=== PATIENT | female | born 1990 | race Caucasian/White ===

== ENCOUNTER 2020-03-12 17:14 | Outpatient (CLI) | payer OTHER, SELFPAY ==
[2020-03-12 17:55] LABS: Hematocrit 36.4 % (37.0-47.0); Hemoglobin 12.5 g/dL (12.0-15.0); Mean Corpuscular HGB Conc 34.3 g/dl (32-36); Mean Corpuscular Hemoglobin 30.6 pg (26-34); Mean Corpuscular Volume 89.2 fl (80-100); Mean Platelet Volume 10.8 fl (7.4-10.4); Platelet Count Result 274 k/mm3 (150-375); Red Blood Count 4.08 M/mm3 (4.2-5.4); Red Cell Distribution Width 12.7 % (11.5-14.5); White Blood Count 12.1 K/mm3 (4.5-10.0)
[2020-03-13 07:41] LABS: Rapid Plasma Reagin Non-Reactive (NonReactive)
== END 2020-03-12 17:15 | disposition home or self-care (01) ==
PROVIDERS: Visit Provider Obstetrics & Gynecology
DX: Z34.93 Encounter for supervision of normal pregnancy, unspecified, third trimester (principal); Z3A.00 Weeks of gestation of pregnancy not specified
CPT/HCPCS: 36415; 85027; 86592; 86850; 86900; 86901

== ENCOUNTER 2020-03-13 11:03 | Inpatient (IN) | payer OTHER, SELFPAY ==
[2020-03-13] VITALS (53 sets, daily range): BP systolic 102–135; BP diastolic 63–93; PULSE 56–101; RESP 12–18; TEMP 36.1–36.9; O2SAT 95–100; BMI 24.5
--- NOTE | 2020-03-13 11:56 | PM.IMHP ---
H&P: HPI History of Present Illness Chief complaint: Scheduled C Section Narrative: 29 y/o at 39 1/7 weeks here for repeat . Also desires permanent contraception with tubal ligation. 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 Does not desire any future childbearing. Review of Systems Review of Systems: All systems reviewed & are unremarkable except as noted in HPI and below PMFSH Surgical History Surgical History History of delivery Family History Family History Mother Breast cancer Daughter Type I diabetes mellitus Social History Social History Substance use: never Gender identity (if verbalized by the patient): Female Spiritual care concerns: No Meds Home Medications and Allergies Home Medications Medication Instructions Recorded Confirmed Type PNV cmb#95-ferrous fumarate-FA 1 tablet PO DAILY 02/19/20 02/19/20 History [] Allergies Allergy/AdvReac Type Severity Reaction Status Date / Time No Known Allergies Allergy Mild Verified 07/18/18 13:39 Vital Signs Vital Signs - 24 hr 03/13/20 11:52 Pulse Rate 97 Blood Pressure 121/93 H Exam Const: Orientation/consciousness: patient oriented x3 Other: Well-developed, well-nourished female in no acute distress. Neck: Thyroid: thyroid normal Lymphatic: no lymphadenopathy noted (in neck, axilla or inguinal nodes) Resp: Effort & Inspection: normal respiratory effort Auscultation: clear to auscultation bilaterally Cardio: Rate: regular rate Rhythm: regular rhythm Heart sounds: S1 normal heart sound present and S2 normal heart sound present GI: Other: ABD: Soft, nontender, gravid. FHR auscultated. Vertex. : General: Yes no CVA tenderness Other: Cervix closed, thick Back/Spine/Pelvis: Back: no CVA tenderness Skin: General skin exam: normal color and no rashes or lesions noted Neuro: General: patient oriented x3 Extrem: Other: Extremities: nontender with no edema Psych: Mental Status: mental status grossly normal Affect: normal affect Assessment and Plan Assessment and plan (1) History of delivery: Code(s): Z98.891 - History of uterine scar from previous surgery Status: Acute Assessment and Plan: She desires repeat . Also would like tubal ligation. She understands there are temporary methods of contraception available to her. She understands that there are nonsurgical options as well as surgical options. She understands that tubal ligation will render her permanently sterile. She understands that there is a failure rate associated with tubal ligation, as well as an inherent ectopic gestation risk. Furthermore, she understands risks of surgery to include risks of anesthesia, risks of pain, infection, bleeding, blood products, thromboembolic phenomena and damage to adjacent structures such as bowel, bladder, ureters, blood vessels and nerves. She understands all these risks and elects to proceed with repeat LTCS and concurrent BTL. (2) Encounter for female sterilization procedure: Code(s): Z30.2 - Encounter for sterilization Status: Acute (3) GBS (group B Streptococcus carrier), +RV culture, currently : Code(s): O99.820 - Streptococcus B carrier state complicating Status: Acute
[2020-03-13] MEDS: LACTATED RINGERS 1,000 ML 125 ML IV CONT ×2 (12:10→13:02)
--- NOTE | 2020-03-13 13:15 | WPDANESEPPF ---
Anes - Initial Pre Proc Eval Procedure: Operation Date: 03/13/20 13:30 Proposed Procedures p Repeat Section With Bilateral Tubal Ligation - Lokesh Borden MD Date/Time: 03/13/20 13:15 Surgeon: Lokesh Borden MD Pre Op Diagnosis: Scheduled C Section Patient Data Age: 29 Gender: F Height: 4 ft 11 in Weight: 55 kg Last Vital Signs Temp 36.9 C 03/13/20 12:15 Pulse 84 03/13/20 12:31 BP 135/91 H 03/13/20 12:31 Allergies Allergy/AdvReac Type Severity Reaction Status Date / Time No Known Allergies Allergy Mild Verified 07/18/18 13:39 Home Medications Medication Instructions Recorded Confirmed Type PNV cmb#95-ferrous fumarate-FA 1 tablet PO DAILY 02/19/20 02/19/20 History [] Patient hx anesthesia problems: post op nausea/vomiting Family hx anesthesia problems: none PMFSH Surgical History Surgical History History of delivery Family History Family History Mother Breast cancer Daughter Type I diabetes mellitus Social History Social History Smoking status: Never smoker Second hand tobacco smoke exposure: No Substance use: never Gender identity (if verbalized by the patient): Female Spiritual care concerns: No Anes - Eval Final PreProcedure Day of Procedure 03/13/20 13:15 Patient weight: normal Heart: regular rate and rhythm Lungs: clear to auscultation Airway: Mallampati scale class II Neurological: alert and oriented Last oral intake: >/= 8 hours ASA classification: II Emergent: no Anesthetic plan: proceed Anesthesia type and monitoring: regional spinal and standard monitoring Informed Consent: The patient's anesthetic plan and its attendant risks and benefits were discussed with the patient/family/POA. Questions were solicited and answers provided to the satisfaction of the patient/family/POA.
[2020-03-13] MEDS: ceFAZolin 2 GM/D5W 50 ML 2 GM/50 ML BAG IVPB (13:50)
--- NOTE | 2020-03-13 14:55 | P.PCNOB_ITS ---
OB - Delivery Note Procedure Delivery date: 03/13/20 Procedure: Procedures Operation Date: 03/13/20 13:30 <No data on this case meets the specified criteria> repeat low transverse delivery with concurrent bilateral tubal ligation Estimated blood loss (mL): 310 Anesthesia type: Spinal Disposition: PACU Complications: None Narrative: The patient was taken to the operating room where she was prepared and draped in the usual sterile fashion in dorsal supine position with a lef tward tilt. She received cefazolin preoperatively. Spinal anesthesia was found to be adequate. A Pfannenstiel skin incision was made along the previous scar line and was carried through to the underlying layer of the fascia. The fascia was incised in the midline and the incision was extended laterally. The fascia was dissected free of the underlying rectus muscles. The rectus muscles were se parated in the midline. The peritoneum was identified, tented up and entered sharply. The peritoneal incision was extended superiorly and inferiorly with good visualization of the bladder. The bladder blade was placed. The vesicouterine peritoneum was identified, tented up and entered sharply. The incision was extended laterally and the bladder flap was developed. The bladder blade was replaced. The uterus was then incised sharply in a transverse fashion along the lower uterine segment. The incision was extended laterally. The infant's head was delivered atraumatically to the sterile field, followed by the body. The nose and mouth were bulb suctioned. After a delay, the cord was clamped and cut. The infant was handed off the field. Cord blood was collected. The placenta was removed manually and was passed off the field. The uterus was exteriorized and cleared of all clots and debris. The uterine incision was reapproximated using 0 Monocryl in a running, locked fashion. A second layer of the same suture was required for excellent hemostasis. The left fallopian tube was then identified by following it out to the fimbriated end. It was grasped in the midportion with a Briana clamp and a loop of tube was ligated with a free tie of 0 plain gut. The tubal segment was then transected and the specimen was passed off to be sent to pathology. Hemostasis was excellent. Attention was turned to the right fallopian tube which was similarly identified, ligated and transected. Once again, excellent hemostasis resulted. The uterus was returned the abdomen. The pelvis was irrigated copiously with warmed normal saline. Rigorous hemostasis was assured. The fascial layer was reapproximated using 0 Vicryl in a running fashion. The skin was closed with a running, subcuticular stitch of 4 0 Vicryl. Dermaflex was applied externally. Sponge, lap, needle and instrument counts were correct. The patient was taken to the recovery room in stable condition. The went to the nursery in stable condition. I was present and scrubbed the entire procedure. [place] Baby Date of : 03/13/20 Time of : 14:57 Weeks of gestation at delivery: 39 Infant gender: Male Weight (pounds): 6 Weight (ounces): 11 presentation: vertex Placenta delivery description: Manual Removal and Normal Configuration cord vessel description: 3 Vessels score one minute: 9 score five minutes: 9
--- NOTE | 2020-03-13 14:59 | PM.OBDSVD ---
DS: Admitting Diagnosis Admitting Diagnosis Admitting Diagnosis: IUP at 39 1/7 weeks Prior Desired sterility GBS pos DS: Discharge Diagnosis Discharge Diagnosis (1) GBS (group B Streptococcus carrier), +RV culture, currently : Code(s): O99.820 - Streptococcus B carrier state complicating Status: Acute (2) Encounter for female sterilization procedure: Code(s): Z30.2 - Encounter for sterilization Status: Acute (3) History of delivery: Code(s): Z98.891 - History of uterine scar from previous surgery Status: Acute OB - DS: Summary OB Procedures : None OB Procedures Intrapartum: OB Procedures: : P.P. tubal ligation Peripartum Data Procedures: Procedures Operation Date: 03/13/20 13:30 <No data on this case meets the specified criteria> Time Spent with Patient Time attestation: Total time spent providing and/or coordinating discharge services: DS: Data Data Completed and Pending Labs on day of discharge: Labs from last 24 hours 03/13/20 13:47 Urine Opiates Screen Pending Urine Methadone Screen Pending Ur Barbiturates Screen Pending Ur Phencyclidine Scrn Pending Ur Amphetamine Screen Pending U Benzodiazepines Scrn Pending Urine Cocaine Screen Pending U Cannabinoids Screen Pending Discharge Plan Discharge Attending physician on discharge: Lokesh Borden Discharging Clinician: Lokesh Borden Patient Disposition: Home, Self-Care Activity: may shower, may drive after 2 weeks and pelvic rest Diet: regular Wound Care Instructions: incision open to air Discharge Instructions: Call or return if temperature above 100.4? F, increased abdominal pain, increased vaginal bleeding or any new problems. Stand Alone Forms: General Discharge Information Follow-up/Referrals: Lokesh Borden MD [Physician] - (4 weeks) Discharge Medications: New hydrocodone-acetaminophen [[place]] 5-325 mg tablet 1 - 2 tablet PO Q6H PRN (Reason: pain) Qty: 30 RF: 0 ibuprofen 600 mg tablet 600 mg PO Q6H PRN (Reason: cramps) Qty: 30 RF: 0 ferrous sulfate 325 mg (65 mg iron) tablet 325 mg PO DAILY Qty: 30 RF: 0 No Action PNV cmb#95-ferrous fumarate-FA [] 28 mg iron- 800 mcg Tablet 1 tablet PO DAILY RF: 0 Date of admission: 03/13/20 11:03 Primary Care Provider: PHYSICIAN,[employer] MANAGER Admitting Provider: Lokesh Borden Attending physician on admission: Lokesh Borden
[2020-03-13 15:17] LABS: Amphetamine Screen Urine Negative (Negative); Barbiturate Screen Urine Negative (Negative); Benzodiazepines Screen Urine Negative (Negative); Cannabinoid Screen Urine Negative (Negative); Cocaine Screen Urine Negative (Negative); Methadone Screen Urine Negative (Negative); Opiate Screen Urine Negative (Negative); Phencyclidine Screen Urine Negative (Negative)
[2020-03-13] MEDS: OXYTOCIN 30 UNITS/NS 500 ML 30 UNITS/500 ML BAG 125 UNITS IV CONT (16:24)
--- NOTE | 2020-03-13 17:54 | PC.NURSE ---
Patient transferred to post room # 287 per stretcher. Support person present. Oriented to unit, room, information board, rooming in, admission packet and security measures. Patient verbalizes understanding.
[2020-03-13] MEDS: SIMETHICONE 80 MG TAB.CHEW PO (18:07)
[2020-03-13] MEDS: KETOROLAC 30 MG/ML VIAL (*BKC) IV PUSH (18:08)
[2020-03-13] MEDS: IBUPROFEN 600 MG TABLET PO (23:12)
[2020-03-14 05:00] VITALS: BP 119/79; PULSE 83; RESP 16; TEMP 36.7
[2020-03-14] MEDS: IBUPROFEN 600 MG TABLET PO ×3 (05:15→18:55)
[2020-03-14 06:19] LABS: Basophils Percent Auto 0.3 % (0.2-1.2); Eosinophils Absolute Auto 0.1 K/mm3 (0-0.3); Eosinophils Percent Auto 1.3 % (0-4.4); Hematocrit 28.7 % (37.0-47.0); Hemoglobin 9.6 g/dL (12.0-15.0); Immature Granulocyte Absolute 0.05 K/mm3 (0.00-0.031); Immature Granulocyte Percent A 0.4 % (0-0.5); Lymphocytes Absolute Auto 2.33 K/mm3 (0.9-3.2); Lymphocytes Percent Auto 20.9 % (18.3-44.2); Mean Corpuscular HGB Conc 33.4 g/dl (32-36); Mean Corpuscular Hemoglobin 29.9 pg (26-34); Mean Corpuscular Volume 89.4 fl (80-100); Mean Platelet Volume 11.4 fl (7.4-10.4); Monocytes Percent Auto 8.8 % (2.6-8.5); Neutrophils Absolute Auto 7.6 K/mm3 (1.3-6.7); Neutrophils Percent Auto 68.3 % (45.5-73.1); Platelet Count Result 209 k/mm3 (150-375); Red Blood Count 3.21 M/mm3 (4.2-5.4); Red Cell Distribution Width 12.4 % (11.5-14.5); White Blood Count 11.2 K/mm3 (4.5-10.0)
[2020-03-14] MEDS: DOCUSATE SODIUM 100 MG CAPSULE PO ×2 (07:14→15:55)
[2020-03-14] MEDS: POLYSACCHARIDE IRON COMPLEX 150 MG CAPSULE PO ×2 (07:14→15:55)
[2020-03-14] MEDS: MULTIVIT/MIN/PREN/FOL AC/IRON TABLET 1 TAB PO (07:14)
[2020-03-14 08:25] VITALS: BP 121/81; PULSE 78; RESP 18; TEMP 36.8; O2SAT 100
--- NOTE | 2020-03-14 09:02 | P.PNOB_ITS ---
OB - PN: Subj Subjective Date/time seen: 03/14/20 09:02 Narrative: Pain OK. Tolerating diet. OB - PN: Obj Data Labs CBC & Chem 7: 03/14/20 04:56 Labs: Laboratory Results - last 24 hr 03/13/20 03/14/20 13:47 04:56 WBC 11.2 H RBC 3.21 L Hgb 9.6 L Hct 28.7 L MCV 89.4 MCH 29.9 MCHC 33.4 RDW 12.4 Plt Count 209 MPV 11.4 H Immature Gran % (Auto) 0.4 Neut % (Auto) 68.3 Lymph % (Auto) 20.9 [place] % (Auto) 8.8 H Eos % (Auto) 1.3 Baso % (Auto) 0.3 Lymph # (Auto) 2.33 [place] # (Auto) 1.0 H Eos # (Auto) 0.1 Baso # (Auto) 0.0 Abs Immat Gran (auto) 0.05 H Absolute Neuts (auto) 7.6 H Absolute Nucleated RBC 0.0 Nucleated RBC % 0.0 Urine Opiates Screen Negative Urine Methadone Screen Negative Ur Barbiturates Screen Negative Ur Phencyclidine Scrn Negative Ur Amphetamine Screen Negative U Benzodiazepines Scrn Negative Urine Cocaine Screen Negative U Cannabinoids Screen Negative OB - PN A/P Plan Comments: A: POD#1, doing well. P: Routine care. Exam Narrative: Exam Narrative: AVSS I/O OK ABD soft, nontender, fundus firm. Incision c/d/i. EXT nontender
--- NOTE | 2020-03-14 09:55 | PC.NURSE ---
Mother is able to independently latch with appropriate positioning/alignment. She denies any nipple discomfort, is feeding as required and waking infant to feed if needed. Requested mother call out next feeding for observation.
--- NOTE | 2020-03-14 10:32 | WPDANLDPN2 ---
Anes-Prog Note L&D Date/Time: 03/14/20 10:32 Comfortable throughout: section Neuraxial method: spinal Epidural/Spinal procedure site: clean & non-tender Neuro status: Neuro function grossly intact. Cardiovascular status: normal Respiratory status: normal Airway patency: baseline Mental status: baseline Post-Op hydration status: normal Vital Signs: Last Vital Signs Temp 36.8 C 03/14/20 08:25 Pulse 78 03/14/20 08:25 Resp 18 03/14/20 08:25 BP 121/81 03/14/20 08:25 Pulse Ox 100 03/14/20 08:25 I/O: Intake & Output 03/13/20 03/14/20 03/14/20 23:59 07:59 15:59 Intake Total 1800 1000 Output Total 850 1800 Balance 950 -800 Post-procedural complaints: none Patient feedback: Patient satisfied with anesthetic care.
--- NOTE | 2020-03-14 10:32 | WPDANLDNPN2 ---
Anes-Prog Note L&D-Neuraxial Date/Time: 03/14/20 10:32 Neuraxial medications: intrathecal PF morphine Opiod-related complaints: none Patient feedback: Patient satisfied with post-operative pain management.
[2020-03-14 11:40] VITALS: BP 114/73; PULSE 71; RESP 16; TEMP 36.8; O2SAT 99
--- NOTE | 2020-03-14 12:15 | PC.NURSE ---
Patient viewed the discharge video Mother & Baby Care, The First Two Weeks . Patient was given the opportunity and encouraged to ask questions. Patient verbalized understanding of information shared and has been given the mother/baby guide for home reference.
[2020-03-14 18:48] VITALS: BP 114/79; PULSE 74; RESP 16; TEMP 36.7
[2020-03-14] MEDS: SIMETHICONE 80 MG TAB.CHEW PO ×2 (18:55→21:58)
[2020-03-15] MEDS: IBUPROFEN 600 MG TABLET PO ×3 (01:05→13:15)
[2020-03-15] MEDS: SIMETHICONE 80 MG TAB.CHEW PO ×6 (01:05→16:25)
[2020-03-15 08:25] VITALS: BP 115/80; PULSE 73; RESP 18; TEMP 37.1; O2SAT 100
[2020-03-15] MEDS: POLYSACCHARIDE IRON COMPLEX 150 MG CAPSULE PO ×2 (09:04→16:25)
[2020-03-15] MEDS: DOCUSATE SODIUM 100 MG CAPSULE PO ×2 (09:04→16:25)
[2020-03-15] MEDS: MULTIVIT/MIN/PREN/FOL AC/IRON TABLET 1 TAB PO (09:04)
--- NOTE | 2020-03-15 10:15 | PC.NURSE ---
Mother is able to independently latch infant with appropriate positioning/alignment. She denies any nipple discomfort, is feeding as required and waking to feed if needed. has had 8 effective feedings in the past 24 hours, and is currently meeting outcomes for weight, output, jaundice and feeding frequencies. Mother states she feels confident to continue effective at home. Reviewed transition to breast milk, signs of adequate intake, and engorgement/relief. Instructed to call ICP if intake/output less than required. Reviewed regular medications mother is taking. Information provided per [place]. Reviewed community resources on the [facility] website and in the Mom/Baby guide. Information on outpatient services provided. Mother has no further questions at this time.
--- NOTE | 2020-03-15 12:29 | PM.OBPNVD ---
OB - PN: Subj Subjective Date/time seen: 03/15/20 12:29 Narrative: Pain OK. Tolerating diet. Would like to go home. OB - PN: Obj Data Labs CBC & Chem 7: 03/14/20 04:56 OB - PN A/P Plan Comments: A: POD#2, doing well. P: Home to f/u 4 weeks. Exam Narrative: Exam Narrative: AVSS ABD soft, nontender, fundus firm. Incision c/d/i. EXT nontender
== END 2020-03-15 16:33 | disposition home or self-care (01) | DRG 540 ==
LOC: ANHLDR 15:01 → ANHOB2 18:27
PROVIDERS: Admitting Provider Obstetrics & Gynecology; Visit Provider Obstetrics & Gynecology
PROC: 10D00Z1 Extraction of Products of Conception, Low, Open Approach (ICD-10-PCS; CPT 59514; principal; 2020-03-13 13:30)
DX: O34.211 Maternal care for low transverse scar from previous cesarean delivery (principal); Z37.0 Single live birth; Z3A.39 39 weeks gestation of pregnancy; O99.824 Streptococcus B carrier state complicating childbirth; O99.324 Drug use complicating childbirth; F12.90 Cannabis use, unspecified, uncomplicated; O98.52 Other viral diseases complicating childbirth; B00.9 Herpesviral infection, unspecified; O99.52 Diseases of the respiratory system complicating childbirth; J45.909 Unspecified asthma, uncomplicated; Z30.2 Encounter for sterilization
CPT/HCPCS: 36415; 80307; 85025; 88302; A9270; J0131; J0690; J1885; J2274; J2370; J2590; J7120